=== PATIENT | female | born 1985 | race Caucasian/White ===

== ENCOUNTER 2019-06-12 23:19 | Emergency (ER) | payer MEDICAID ==
[~2019-06-12] VITALS: Ht 152.4 cm; Wt 110.7 kg
[2019-06-12 23:50] VITALS: Ht 152.4 cm; Wt 110.7 kg
[2019-06-13 02:08] LABS: PLATELET COUNT 366 x10^3mcL (130-400)
[2019-06-13 02:16] LABS: CARBON DIOXIDE 22.2 mmol/L (21-32); CHLORIDE SERUM 102 mmol/L (98-107); CREATININE SERUM 0.8 mg/dL (0.6-1.0); GFR1 > 60 mL/min; GLUCOSE SERUM 79 mg/dL (74-106); POTASSIUM SERUM 3.7 mmol/L (3.5-5.1); SODIUM SERUM 140 mmol/L (136-145)
[2019-06-13 02:22] LABS: ALKALINE PHOSPHATASE 80 U/L (46-116); ALT/SGPT 40 U/L (14-59); AST/SGOT 32 U/L (15-37); BILIRUBIN TOTAL 0.49 mg/dL (0.20-1.00); C REACTIVE PROTEIN 8.1 mg/dL (<=0.9)
[2019-06-13 02:24] LABS: TOTAL PROTEIN, SERUM 8.7 g/dL (6.4-8.2)
[2019-06-13 02:34] LABS: BASOPHIL % 11.5 % (0-2)
[2019-06-13 02:47] LABS: UA SPECIFIC GRAVITY <=1.005 (1.005-1.035); microscopic required? YES; urine erythrocyte 1+ (NEGATIVE)
[2019-06-13 03:23] LABS: ERYTHROCYTE SED RATE 41 mm/hr (0-20)
[2019-06-13 04:13] VITALS: BP 109/56
== END 2019-06-13 04:05 | disposition home or self-care (01) ==
LOC: ED 23:19
PROVIDERS: Specialist
DX: N12 Tubulo-interstitial nephritis, not specified as acute or chronic (principal); Z90.89 Acquired absence of other organs; Z90.49 Acquired absence of other specified parts of digestive tract; Z88.0 Allergy status to penicillin
CPT/HCPCS: J1885; J1956; J2405; J3010; J7030